=== PATIENT | female | born 1970 | race Caucasian/White ===

== ENCOUNTER 2016-11-19 06:01 | Emergency (ER) | payer BC ==
[~2016-11-19] VITALS: Ht 175.3 cm; Wt 70.0 kg
[~2016-11-19 06:01] MED LIST: BACT800T5 PO; MEDR4PAK PO; VENTAER INH
[2016-11-19 06:13] VITALS: BP 113/78; PULSE 98; RESP 20; TEMP 98.1; O2SAT 96
[2016-11-19] MEDS ORDERED: ALBUAER3 INH (06:25)
[2016-11-19] MEDS ORDERED: ZITHTAB2 PO (06:25)
[2016-11-19] MEDS ORDERED: ILOTOIN LEFT EYE (06:25)
--- NOTE | 2016-11-19 06:32 | PD ---
HPI Chief Complaint: Cold / Flu Symptoms Time Seen by Provider: 06:23 Travel History International Travel<30 days: No Contact w/Intl Traveler<30days: No Traveled to known affect area: No History of Present Illness HPI 46-year-old female presents to the emergency department for 4-5 days of cough congestion wheezing with worsening cold symptoms and awakened this morning with left eye pain redness and drainage. Patient is exposed to grandchildren with frequent respiratory illness symptoms. Patient denies specific foreign body or injury; but reports foreign body sensation. Patient does not wear corrective lenses. Patient does not note any sinus pressure drainage but has had cough intermittently productive of yellow sputum. No fever chills at this time. No influenza vaccine. Patient has an inhaler but is is almost empty. Patient continues to smoke cigarettes daily. No specific exacerbating or alleviating factors. PFSH Past Medical History Narrative Medical Bronchitis COPD tobaccoism endometriosis hysterectomy; nursing notes reviewed COPD: Yes Diminished Hearing: No Immunizations Current: Yes Tetanus Vaccination: Unknown Influenza Vaccination: No ?: Not Past Surgical History Gynecologic Surgery: Yes (endometriosis surgery) Hysterectomy: Yes Social History Alcohol Use: Yes (1/WEEK) Tobacco Use: Yes (1 ppd) Substance Use: Yes Allergies-Medications (Allergen,Severity, Reaction): Coded Allergies: No Known Allergies (Unverified , 11/19/16) Reported Meds & Prescriptions Reported Meds & Active Scripts Active Proair Hfa 8.5 GM Inh (Albuterol Sulfate) 90 Mcg/Act Aer 2 Puff INH Q4-6H PRN 108 mcg/actuation Zithromax Tri-Thai (Azithromycin) 500 Mg Dspk 500 Mg PO DAILY Ilotycin Opth Oint (Erythromycin Opth Oint) 5 Mg/Gm Oint 1 Applic LEFT EYE QID Narrative Medication Albuterol inhaler Review of Systems Except as stated in HPI: all other systems reviewed are Neg General / Constitutional: No: Fever Eyes: Positive: Drainage, Redness, Foreign Body Sensation, Tearing, No: Visual changes HENT: Positive: Congestion, No: Headaches Cardiovascular: No: Chest Pain or Discomfort Respiratory: Positive: Cough, Wheezing Gastrointestinal: No: Abdominal Pain Genitourinary: No: Flank Pain Musculoskeletal: No: Myalgias, Arthralgias Skin: No Rash Neurologic: No: Weakness Psychiatric: No: Anxiety Endocrine: No: Heat Intolerance Hematologic/Lymphatic: No: Easy Bruising Physical Exam Narrative GENERAL: Well-developed well-nourished female in no acute distress no respiratory distress SKIN: Warm and dry. HEAD: Normocephalic. EYES: No scleral icterus. Pupils equal round reactive to light extraocular muscles intact. Left eye injection with cloudy drainage; no fluorescein uptake of the cornea or conjunctiva over the sclera; small hordeolum to the left lower lid; no foreign body identified; no dendritic changes noted. NECK: Supple, trachea midline. No JVD or lymphadenopathy. CARDIOVASCULAR: Regular rate and rhythm without murmurs, gallops, or rubs. RESPIRATORY: Breath sounds equal bilaterally diffuse expiratory wheeze. No accessory muscle use. GASTROINTESTINAL: Abdomen soft, non-tender, nondistended. MUSCULOSKELETAL: No cyanosis, or edema. BACK: Nontender without obvious deformity. No CVA tenderness. Data Data Last Documented VS Vital Signs Date Time Temp Pulse Resp B/P Pulse Ox O2 Delivery O2 Flow Rate FiO2 11/19/16 06:16 98 20 96 Room Air 11/19/16 06:13 98.1 113/78 [facility] Medical Decision Making Medical Screen Exam Complete: Yes Emergency Medical Condition: Yes Medical Record Reviewed: Yes Differential Diagnosis Viral syndrome, sinusitis, conjunctivitis, retained foreign body, zoster, corneal abrasion, bronchitis Narrative Course Patient with respiratory illness with ongoing tobacco use x-ray wheezes symptoms consistent with bronchitis and now presenting with cloudy tearing drainage consistent with conjunctivitis allergic versus viral versus bacterial; patient stable for outpatient management but will be given prescription for Ilotycin as well as azithromycin and refill of inhaler. Patient is stable for outpatient management inversion follow-up with her primary care provider and forestry fire aide as needed no work times one day and patient given education on strict hygiene to avoid cross contamination regarding use of warm moist compresses to removed crusting drainage from the left eye. 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 Diagnosis Primary Impression: Conjunctivitis Qualified Code: H10.32 - Acute conjunctivitis of left eye, unspecified acute conjunctivitis type Additional Impression: Bronchitis Referrals: Primary Care Physician call for appointment Patient Instructions: General Instructions Departure Forms: Tests/Procedures, Work Release Special Instructions: no work x 1 day Additional Instructions: Apply warm moist compresses left eye to remove crusting and drainage use caution to avoid cross contamination with the opposite eye Complete course of antibiotic as prescribed Use inhaler as prescribed as needed for wheezing Discontinue tobacco use Take acetaminophen/Tylenol as often as every 4-6 hours as needed for fever 100.4 F or greater or for minor pain May take ibuprofen/Advil/Motrin every 6-8 hours as needed for fever 100.4F or greater or for pain associated with inflammation May use saline eyedrops to irrigate the left eye as needed for comfort purposes Follow-up with primary care provider Follow-up with forestry fire aide as needed Return to the emergency department for a concerns or change in condition Med/Other Pt SpecificInfo: Prescription(s) given Scripts Albuterol 8.5 GM Inh (Proair Hfa 8.5 GM Inh)90 Mcg/Act Aer2 Puff INH Q4-6H PRN ( SHORTNESS OF BREATH) #1 INHALER Ref 0 108 mcg/actuation Prov:Chrissie Artis MD 11/19/16 Azithromycin (Zithromax Tri-Thai)500 Mg [id number] Mg PO DAILY #1 DSPK Ref 0 Prov:Chrissie Artis MD 11/19/16 Erythromycin Opth Oint (Ilotycin Opth Oint)5 Mg/Gm Oint1 Applic LEFT EYE QID # 1 TUBE Ref 0 Prov:Chrissie Artis MD 11/19/16 Disposition: 01 DISCHARGE HOME Condition: Stable Chrissie Artis MD Nov 19, 2016 06:32
== END 2016-11-19 06:42 | disposition home or self-care (01) ==
LOC: PHED 06:01
DX: H10.32 Unspecified acute conjunctivitis, left eye (principal); J40 Bronchitis, not specified as acute or chronic; F17.200 Nicotine dependence, unspecified, uncomplicated; Z87.09 Personal history of other diseases of the respiratory system
CPT/HCPCS: 99283

== ENCOUNTER 2017-12-31 20:07 | Emergency (ER) | payer BC ==
[~2017-12-31] VITALS: Ht 175.3 cm; Wt 74.8 kg
[~2017-12-31 20:07] MED LIST changes: +ALBUAER3 INH; -BACT800T5 PO; +ILOTOIN LEFT EYE; -MEDR4PAK PO; -VENTAER INH; +ZITHTAB2 PO
[2017-12-31 20:10] VITALS: BP 118/79; PULSE 97; RESP 16; TEMP 98.6; O2SAT 96
[2017-12-31] MEDS ORDERED: LIDOCAINE 1%/EPINEPHrine 1:100,000 SOLN 20 ML VIAL INFIL ONE (20:45)
[2017-12-31] MEDS ORDERED: BACT800T5 PO (21:02)
--- NOTE | 2017-12-31 21:04 | PD ---
HPI Chief Complaint: Lump, Cyst, Hernia Time Seen by Provider: 20:28 Travel History International Travel<30 days: No Contact w/Intl Traveler<30days: No Traveled to known affect area: No History of Present Illness HPI The patient is a 47-year-old female that about 8 days ago fell at a camp site and hit her elbow. She developed a painful lump on her elbow with some progressively enlarging redness around the elbow. The pain was progressive and is an 8/10 and sharp pain at this time. She denies any fever chills, nausea, vomiting or diarrhea. She put a heating pad on it several days ago and she felt worse after the heating pad. She denies any history of diabetes and denies any major medical problems. Her last tetanus shot was less than 10 years ago. PFSH Past Medical History COPD: Yes Diminished Hearing: No Reproductive: Yes (ENDOMETRIOSIS) Immunizations Current: Yes Tetanus Vaccination: < 5 Years Influenza Vaccination: No ?: Not : 3 Para: 2 Miscarriage: 1 Dilation and Curettage (D&C): Yes Past Surgical History Gynecologic Surgery: Yes (endometriosis surgery) Hysterectomy: Yes Social History Alcohol Use: Yes (1/WEEK) Tobacco Use: Yes (1 ppd) Substance Use: Yes ("WEED SOMETIMES") Allergies-Medications (Allergen,Severity, Reaction): Coded Allergies: No Known Allergies (Verified Adverse Reaction, Unknown, 12/31/17) Reported Meds & Prescriptions Reported Meds & Active Scripts Active Proair Hfa 8.5 GM Inh (Albuterol Sulfate) 90 Mcg/Act Aer 2 Puff INH Q4-6H PRN 108 mcg/actuation Review of Systems Except as stated in HPI: all other systems reviewed are Neg Physical Exam Narrative GENERAL: Well-nourished, well-developed patient. SKIN: Focused skin assessment warm/dry. There is a 2 cm abscess at the elbow, not into the joint. This is a superficial abscess. There is an area of cellulitis approximately 4 cm in diameter surrounding the abscess. No red streak is noted. HEAD: Normocephalic. EYES: No scleral icterus. No injection or drainage. NECK: Supple, trachea midline. No JVD or lymphadenopathy. CARDIOVASCULAR: Regular rate and rhythm without murmurs, gallops, or rubs. RESPIRATORY: Breath sounds equal bilaterally. No accessory muscle use. GASTROINTESTINAL: Abdomen soft, non-tender, nondistended. MUSCULOSKELETAL: No cyanosis, or edema. BACK: Nontender without obvious deformity. No CVA tenderness. Data Data Last Documented VS Vital Signs Date Time Temp Pulse Resp B/P (MAP) Pulse Ox O2 Delivery O2 Flow Rate FiO2 12/31/17 20:10 98.6 97 16 118/79 (92) 96 Orders Orders Lidocai-Epi 1%-1:100,000 Inj (Xylocaine- (12/31/17 20:45) MDM Medical Decision Making Medical Screen Exam Complete: Yes Emergency Medical Condition: Yes Medical Record Reviewed: Yes Differential Diagnosis Abscess, cellulitis, foreign body in wound Narrative Course The patient has an abscess with cellulitis. This was incised and drained. The patient will need to elevate the elbow above her heart and take Septra DS twice daily for 10 days. She should use a heating pad on its lowest setting and interpose a towel between her skin and the pad. Procedures Procedure Narrative The area was painted with Betadine. Under sterile technique a field block was done with lidocaine with epinephrine. A #11 blade was used to incise and drain the abscess. A search for foreign body was made and no foreign body seen. The wound was then cleaned out with peroxide moistened Q-tips. The patient tolerated the procedure well. Diagnosis Primary Impression: Abscess Additional Impressions: Encounter for incision and drainage procedure Cellulitis Additional Instructions: As we discussed, heating pad is useful, turned on its lowest setting and interpose a towel between your skin and the pad to avoid chu. Elevate the elbow above your heart. The antibiotic is 1 tablet twice daily for 10 days. If you are worse or not getting better, please return to the emergency department for reevaluation. Med/Other Pt SpecificInfo: Prescription(s) given Scripts Sulfamethoxazole-Trimethoprim (Bactrim DS) 800-160 Mg Tab 1 TAB PO BID for Infection, #20 TAB 0 Refills Prov: Jacob Kennedy MD 12/31/17 Disposition: 01 DISCHARGE HOME Condition: Stable Jacob Kennedy MD Dec 31, 2017 21:04
[2017-12-31] MEDS ORDERED: SULFAMETHOXAZOLE-TRIMETHOPRIM DS 800-160 MG TAB PO ONE (21:15)
== END 2017-12-31 21:13 | disposition home or self-care (01) ==
LOC: PHED 20:07
DX: L02.419 Cutaneous abscess of limb, unspecified (principal); L03.119 Cellulitis of unspecified part of limb; J44.9 Chronic obstructive pulmonary disease, unspecified; F17.200 Nicotine dependence, unspecified, uncomplicated; F12.90 Cannabis use, unspecified, uncomplicated
CPT/HCPCS: 10060